=== PATIENT | female | born 1950 | race Caucasian/White ===

== ENCOUNTER 2016-05-03 09:42 | Emergency (ER) | payer SELFPAY ==
[~2016-05-03] VITALS: Ht 162.6 cm; Wt 99.8 kg
[2016-05-03] MEDS ORDERED: ETOMIDATE (2MG/ML) 20ML VIAL IV ONE (10:00)
[2016-05-03] MEDS ORDERED: HYDROcodone-ACET 10/325MG TAB ONE (10:44)
[2016-05-03] MEDS ORDERED: HYDROcodone-ACET 10/325MG TAB PO ONE (11:00)
[2016-05-03 11:56] VITALS: BP 165/70
== END 2016-05-03 12:10 | disposition home or self-care (01) ==
LOC: ER 09:52
DX: S43.004A Unspecified dislocation of right shoulder joint, initial encounter (principal); F17.210 Nicotine dependence, cigarettes, uncomplicated; Z88.0 Allergy status to penicillin; W19.XXXA Unspecified fall, initial encounter; Y93.01 Activity, walking, marching and hiking; Y99.8 Other external cause status; Y92.59 Other trade areas as the place of occurrence of the external cause
CPT/HCPCS: 23650; 73020; 73030; 73110; 99284; J7030